=== PATIENT | female | born 1995 | race Caucasian/White ===

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

== ENCOUNTER 2018-08-28 23:26 | Emergency (ER) | END 2018-08-29 01:43 | disposition home or self-care (01) ==

== ENCOUNTER 2018-08-31 18:43 | Emergency (ER) | END 2018-08-31 21:23 | disposition home or self-care (01) ==

== ENCOUNTER 2019-02-07 23:03 | Outpatient (CLI) | payer BC ==
[~2019-02-07] VITALS: Ht 162.6 cm; Wt 94.0 kg
[~2019-02-07 23:03] MED LIST changes: +CYCL10TA7 PO; +FAMO-96 PO; +METO10TA92 PO; +NAPR-985 PO; +PNV1TABL12 PO; +RANI150T35 PO; -RANI150T9 PO
[2019-02-07 23:05] VITALS: BP 108/55; PULSE 99; RESP 19; Ht 162.6 cm; Wt 94.0 kg
--- NOTE | 2019-02-08 10:15 | PN ---
Triage Information Date/Time 02/08/19 Reason for visit: DFM Weeks of Gestation 26w6d /Para Diabetes: none Hypertention: none Objective Vital Signs Date Temp Pulse Resp B/P (MAP) Pulse Ox O2 O2 Flow FiO2 Time Delivery Rate 02/07/19 98.5 99 19 108/55 Room Air 23:05 (72) Heart Rate: 140's Heart Rate Comments comparable with [place] Contractions: None Results/Medications Result Diagram: 02/08/19 0031 Results 24 hrs Laboratory Tests Test 02/07/19 23:50 02/08/19 00:31 Urine Color YELLOW Urine Clarity CLOUDY A Urine pH 5.0 Urine Specific Cement 1.029 Urine Ketones NEGATIVE Urine Nitrite NEGATIVE Urine Bilirubin NEGATIVE Urine Urobilinogen 2+ H Urine Leukocyte Esterase NEGATIVE Urine Microscopic RBC 3 Urine Microscopic WBC 15 H Urine Squamous Epithelial Cells MODERATE Urine Bacteria FEW A Urine Mucus FEW A Urine Hemoglobin NEGATIVE Urine Glucose NEGATIVE Urine Total Protein 1+ H White Blood Count 12.2 #H Red Blood Count 3.09 #L Hemoglobin 7.0 #L Hematocrit 24.5 #L Mean Corpuscular Volume 79.3 L Mean Corpuscular Hemoglobin 22.7 L Mean Corpuscular Hemoglobin Concent 28.6 L Red Cell Distribution Width 17.1 H Platelet Count 325 # Mean Platelet Volume 10.4 Immature Granulocytes % 0.900 H Neutrophils % 70.3 Lymphocytes % 21.0 Monocytes % 6.9 Eosinophils % 0.7 Basophils % 0.2 Nucleated Red Blood Cells % 0.2 H Immature Granulocytes # 0.110 H Neutrophils # 8.6 H Lymphocytes # 2.6 Monocytes # 0.9 Eosinophils # 0.1 Basophils # 0.0 Nucleated Red Blood Cells # 0.0 Imaging Results BPP 8/8 CVL 4.6 JAZIEL 12.7 Disposition: Discharge Assessment/Plan A IUP 26w6d R/O UTI anemia P discharge home with Rx macrobid BID #20 ferrous gluconate 325mgBID #90 HAMMAD TERRY MD February 08, 2019 10:15
== END 2019-02-08 01:54 | disposition home or self-care (01) ==
LOC: OBT 23:03 → L-D 23:03 → OBT 02-08 01:54
PROVIDERS: ATTEND Obstetrics & Gynecology
DX: O36.8120 Decreased fetal movements, second trimester, not applicable or unspecified (principal); O99.012 Anemia complicating pregnancy, second trimester; Z3A.26 26 weeks gestation of pregnancy
CPT/HCPCS: 76817; 76818; 81001; 85025; 87086; Z7500; G0463

== ENCOUNTER 2019-04-28 10:28 | Inpatient (IN) | payer BC ==
[~2019-04-28] VITALS: Ht 162.6 cm; Wt 99.0 kg
[~2019-04-28 10:28] MED LIST changes: -ACET500C5 PO; -CYCL10TA7 PO; -ELEC100080 PO; -FAMO-96 PO; -METO10TA92 PO; -NAPR-985 PO; -ONDA4TAB35 PO; -ONDA4TAB8 PO; -RANI150T35 PO
[2019-04-28 10:51] VITALS: BP 117/68; PULSE 82; RESP 18; Ht 162.6 cm; Wt 99.0 kg
[2019-04-28] MEDS ORDERED: LACTATED RINGER'S 1,000 ML IV SCH (11:20)
[2019-04-28] MEDS ORDERED: LIDOCAINE 1% (MPF) 30 ML INJ INJ PRN (11:30)
[2019-04-28] MEDS ORDERED: OXYTOCIN 30 UNITS/LR 500 ML IV SCH ×4 (11:30→23:45)
[2019-04-28] MEDS ORDERED: AMPICILLIN 2 GM/NS (PMX) 100 ML IV ONE (11:30)
[2019-04-28] MEDS ORDERED: METHYLERGONOVINE 0.2 MG INJ IM PRN (11:30)
[2019-04-28] MEDS ORDERED: OXYTOCIN 30 UNITS/LR 500 ML IV PRN (11:30)
[2019-04-28] MEDS ORDERED: CARBOPROST 250 MCG INJ IM PRN (11:30)
[2019-04-28] MEDS ORDERED: BUTORPHANOL 2 MG INJ IV PRN (11:30)
[2019-04-28] MEDS ORDERED: MISOPROSTOL 200 MCG TAB PR PRN (11:30)
[2019-04-28] MEDS ORDERED: IBUPROFEN 600 MG TAB PO PRN (11:30)
[2019-04-28] MEDS ORDERED: FENTAnyl 2MCG/ML-ROPIV 0.2% 100 ML BAG EPI SCH (14:30)
[2019-04-28] MEDS ORDERED: DIPHENHYDRAMINE 50 MG INJ IV PRN (14:30)
[2019-04-28] MEDS ORDERED: ONDANSETRON 4 MG INJ IV PRN (14:30)
[2019-04-28] MEDS ORDERED: NALOXONE (0.4 MG/ML) INJ IV PRN (14:30)
[2019-04-28] MEDS ORDERED: AMPICILLIN 1 GM/NS (PMX) 50 ML IV SCH (15:30)
[2019-04-28] MEDS ORDERED: CEFAZOLIN 2 GM/50 ML (PMX) 50 ML IVPB ONE (20:47)
[2019-04-28] MEDS ORDERED: CLINDAMYCIN 900 MG (PMX) 50 ML IVPB ONE (20:51)
[2019-04-28] MEDS ORDERED: CLINDAMYCIN 900 MG (PMX) 50 ML IVPB SCH (21:00)
[2019-04-28] MEDS ORDERED: DIPHENOXYLATE/ATROPINE TAB PO PRN (21:00)
[2019-04-29] VITALS (11 sets, daily range): BP systolic 96–119; BP diastolic 50–70; PULSE 84–104; RESP 17–20
[2019-04-29] MEDS ORDERED: CARBOPROST 250 MCG INJ IM PRN
[2019-04-29] MEDS ORDERED: METHYLERGONOVINE 0.2 MG INJ IM PRN
[2019-04-29] MEDS ORDERED: OXYCODONE/ASPIRIN (4.88/325) TAB PO PRN ×2
[2019-04-29] MEDS ORDERED: WITCH HAZEL/GLYCERIN PAD PR PRN
[2019-04-29] MEDS ORDERED: BENZOCAINE 20% 56 ML SPRAY TOP PRN
[2019-04-29] MEDS ORDERED: ONDANSETRON 4 MG INJ IV PRN
[2019-04-29] MEDS ORDERED: DIBUCAINE 1% 30 GM OINT TOP PRN
[2019-04-29] MEDS ORDERED: NACL 0.9% 3 ML SYG IV SCH
[2019-04-29] MEDS ORDERED: LANOLIN HPA 1 PKT TOP PRN
[2019-04-29] MEDS ORDERED: MISOPROSTOL 200 MCG TAB PR PRN
[2019-04-29] MEDS ORDERED: ACETAMINOPHEN 325 MG TAB PO PRN
[2019-04-29] MEDS ORDERED: OXYTOCIN 30 UNITS/LR 500 ML IV PRN
[2019-04-29] MEDS: IBUPROFEN 600 MG TAB PO SCH ×5 (05:51→23:43)
[2019-04-29] MEDS: SENNA/DOCUSATE NA (8.6MG/50MG) TAB PO SCH ×2 (09:17→21:00)
[2019-04-29] MEDS: MAGNESIUM HYDROXIDE 30ML CUP PO SCH ×2 (09:17→21:00)
[2019-04-29] MEDS: CLINDAMYCIN 900 MG (PMX) 50 ML IVPB SCH ×2 (09:18→18:08)
[2019-04-29] MEDS ORDERED: ACETAMINOPHEN 500 MG TAB PO STA (11:17)
[2019-04-29] MEDS ORDERED: DIPHENHYDRAMINE 25 MG CAP PO ONE (11:30)
[2019-04-30 00:30] VITALS: BP 94/55; PULSE 100; RESP 20
[2019-04-30] MEDS: CLINDAMYCIN 900 MG (PMX) 50 ML IVPB SCH ×3 (01:24→17:51)
[2019-04-30 03:44] VITALS: BP 95/50; PULSE 100; RESP 20
[2019-04-30] MEDS: IBUPROFEN 600 MG TAB PO SCH ×4 (06:12→23:26)
[2019-04-30 08:48] VITALS: BP 106/56; PULSE 78; RESP 18
[2019-04-30] MEDS ORDERED: DIPHTH/TET/ACEL PERTUSS (ADULT) 0.5 ML VIAL IM* ONE (09:00)
[2019-04-30] MEDS: SENNA/DOCUSATE NA (8.6MG/50MG) TAB PO SCH ×2 (09:24→20:56)
[2019-04-30] MEDS: MAGNESIUM HYDROXIDE 30ML CUP PO SCH ×2 (09:24→20:56)
[2019-04-30] MEDS ORDERED: DIPHENHYDRAMINE 50 MG INJ IV ONE (09:30)
[2019-04-30 12:32] VITALS: BP 103/64; PULSE 72; RESP 16
[2019-04-30 15:35] VITALS: BP 109/62; PULSE 97; RESP 18
[2019-04-30 20:00] VITALS: BP 127/64; PULSE 77; RESP 20
[2019-05-01 03:28] VITALS: BP 124/64; PULSE 82; RESP 20
[2019-05-01] MEDS: IBUPROFEN 600 MG TAB PO SCH ×2 (05:22→12:27)
[2019-05-01 08:00] VITALS: BP 120/77; PULSE 73; RESP 18
[2019-05-01] MEDS: MAGNESIUM HYDROXIDE 30ML CUP PO SCH (08:40)
[2019-05-01] MEDS: SENNA/DOCUSATE NA (8.6MG/50MG) TAB PO SCH (08:40)
== END 2019-05-01 17:06 | disposition home or self-care (01) | DRG 768 ==
LOC: OBT 10:28 → L-D 10:29 → OBT 11:09 → PP1 04-29 00:25
PROVIDERS: ADMIT Obstetrics & Gynecology; ATTEND Obstetrics & Gynecology
PROC: 10E0XZZ Delivery of Products of Conception, External Approach (ICD-10-PCS; principal; 2019-04-29)
PROC: 0W3R7ZZ Control Bleeding in Genitourinary Tract, Via Natural or Artificial Opening (ICD-10-PCS; 2019-04-29)
PROC: 0KQM0ZZ Repair Perineum Muscle, Open Approach (ICD-10-PCS; 2019-04-29)
PROC: 30233N1 Transfusion of Nonautologous Red Blood Cells into Peripheral Vein, Percutaneous Approach (ICD-10-PCS; 2019-04-29)
DX: O99.214 Obesity complicating childbirth (principal); D62 Acute posthemorrhagic anemia; E66.9 Obesity, unspecified; O99.02 Anemia complicating childbirth; D64.9 Anemia, unspecified; O70.1 Second degree perineal laceration during delivery; O72.1 Other immediate postpartum hemorrhage; O69.81X0 Labor and delivery complicated by cord around neck, without compression, not applicable or unspecified; Z37.0 Single live birth; Z3A.38 38 weeks gestation of pregnancy
CPT/HCPCS: 36430; 62322; 76815; 82962; 83615; 85025; 85610; 85730; 86592; 86850; 86900; 86901; 86920; 87340; 94760; 99464; G0463; J0690; J1200; J2210; J2590; J3010; J7120; P9016